=== PATIENT | male | born 1990 | race Caucasian/White ===

== ENCOUNTER 2016-08-12 06:55 | Emergency (ER) | payer MEDICAID ==
[~2016-08-12] VITALS: Ht 175.3 cm; Wt 79.4 kg
--- NOTE | 2016-08-12 06:55 | NUR ---
Patient ambulated to bed 07.
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
[2016-08-12 07:11] VITALS: BP 141/92
--- NOTE | 2016-08-12 07:30 | NUR ---
Patient going to XRAY via [facility].
--- NOTE | 2016-08-12 07:45 | NUR ---
Patient back from XRAY via [facility].
--- NOTE | 2016-08-12 07:53 | NUR ---
Patient appears to be resting comfortably in bed. Vital Signs within normal limits. Respirations even and unlabored.WILL CONTINUE TO MONITOR.
--- NOTE | 2016-08-12 08:00 | NUR ---
Dr. Hudson evaluating patient at bedside.
[2016-08-12] MEDS: MORPHINE SULFATE 4 MG/ML SYR IM ONE (08:16)
[2016-08-12 08:47] VITALS: BP 107/64
== END 2016-08-12 08:47 | disposition home or self-care (01) ==
LOC: MED 06:55
DX: M79.661 Pain in right lower leg (principal); J44.9 Chronic obstructive pulmonary disease, unspecified
CPT/HCPCS: 73562; 73590; 96372; 99284; J2270